=== PATIENT | male | born 1975 | race Native Hawaiian/Other Pacific Islander ===

== ENCOUNTER 2022-03-06 08:07 | Emergency (ER) | payer BC ==
[~2022-03-06] VITALS: Ht 185.4 cm; Wt 72.6 kg
[2022-03-06 08:20] VITALS: TEMP 97
[2022-03-06 09:37] LABS: PLATELET COUNT 138 K/uL (142-355)
[2022-03-06 11:30] VITALS: BP 133/75
== END 2022-03-06 11:54 | disposition short-term general hospital (02) ==
LOC: ED 08:07
PROVIDERS: Family Medicine
PROC: 2W3DX1Z Immobilization of Left Lower Arm using Splint (ICD-10-PCS; principal; 2022-03-06)
DX: S52.592A Other fractures of lower end of left radius, initial encounter for closed fracture (principal); S52.612A Displaced fracture of left ulna styloid process, initial encounter for closed fracture; Y93.39 Activity, other involving climbing, rappelling and jumping off; Y93.A5 Activity, obstacle course; Y92.89 Other specified places as the place of occurrence of the external cause; Z11.52 Encounter for screening for COVID-19
CPT/HCPCS: 80053; 85027; 87635; 96360; 96361; 96374; 96375; 96376; 99284; J1885; J2270; J2405; U0003